=== PATIENT | female | born 1970 | race Caucasian/White ===

== ENCOUNTER 2019-06-24 10:45 | Emergency (ER) | payer MEDICARE, MEDICAID ==
[~2019-06-24] VITALS: Ht 167.6 cm; Wt 57.7 kg
[~2019-06-24 10:45] MED LIST: AZIT250T PO
[2019-06-24] MEDS ORDERED: ALBU8.5H8 IH (11:24)
[2019-06-24 12:01] VITALS: BP 128/69
== END 2019-06-24 12:05 | disposition home or self-care (01) ==
LOC: ER 10:47
DX: H92.01 Otalgia, right ear (principal); R05 Cough; F17.210 Nicotine dependence, cigarettes, uncomplicated; G89.29 Other chronic pain; Z56.0 Unemployment, unspecified; Z90.710 Acquired absence of both cervix and uterus; Z98.890 Other specified postprocedural states; Z88.0 Allergy status to penicillin; Z88.8 Allergy status to other drugs, medicaments and biological substances
CPT/HCPCS: 99283

== ENCOUNTER 2020-03-09 10:46 | Outpatient (CLI) | payer MEDICARE, MEDICAID ==
[~2020-03-09 10:46] MED LIST changes: +ALBU8.5H8 IH
== END 2020-03-09 23:59 | disposition home or self-care (01) ==
LOC: RAD 10:46
PROVIDERS: ATTEND Nurse Practitioner Family
DX: G40.209 Localization-related (focal) (partial) symptomatic epilepsy and epileptic syndromes with complex partial seizures, not intractable, without status epilepticus (principal)
CPT/HCPCS: 95816

== ENCOUNTER 2021-10-29 12:57 | Emergency (ER) | payer MEDICARE, MEDICAID ==
[~2021-10-29] VITALS: Ht 165.1 cm; Wt 56.0 kg
[~2021-10-29 12:57] MED LIST changes: +ALBU8.5H17 IH; -ALBU8.5H8 IH
[2021-10-29 13:37] VITALS: BP 123/55
[2021-10-29] MEDS ORDERED: ketorolac trometh inj. 60 MG/2 ML VIAL IM ONE (13:45)
== END 2021-10-29 15:14 | disposition home or self-care (01) ==
LOC: ER 12:58
DX: M25.511 Pain in right shoulder (principal); G89.29 Other chronic pain; F41.9 Anxiety disorder, unspecified; F32.9 Major depressive disorder, single episode, unspecified; Z86.69 Personal history of other diseases of the nervous system and sense organs; Z90.710 Acquired absence of both cervix and uterus; Z98.890 Other specified postprocedural states; Z56.0 Unemployment, unspecified; Z88.8 Allergy status to other drugs, medicaments and biological substances; Z79.2 Long term (current) use of antibiotics
CPT/HCPCS: 96372; 99283; J1885

== ENCOUNTER 2022-07-07 12:48 | Emergency (ER) | payer MEDICARE, MEDICAID ==
[~2022-07-07] VITALS: Ht 167.6 cm; Wt 52.3 kg
[2022-07-07 13:34] LABS: BASOPHILS % (AUTO) 0.4 % (0-1); EOSINOPHILS % (AUTO) 0.4 % (0-6); HEMATOCRIT 40.4 % (35.0-45.0); HEMOGLOBIN 13.9 g/dl (12.0-16.0); LYMPHOCYTES % (AUTO) 34.9 % (21-51); MEAN CORPUSCULAR HEMOGLOBIN 33.4 PG (27.0-31.0); MEAN CORPUSCULAR HGB CONC 34.4 g/dL (33.0-36.5); MEAN PLATELET VOLUME 7.3 FL (7.4-10.4); MONOCYTES # (AUTO) 0.5 X10'3 (0-0.9); MONOCYTES % (AUTO) 6.1 % (2-12); NEUTROPHILS % (AUTO) 58.2 % (42-75); PLATELET COUNT 432 X10'3 (140-440); RED BLOOD COUNT 4.16 X10'6 (4.20-5.60); RED CELL DISTRIBUTION WIDTH 14.5 % (11.5-14.5); WHITE BLOOD COUNT 8.6 X10'3 (4.5-11.0)
[2022-07-07] MEDS ORDERED: ringers solution, lacted 1,000 ML IV ONE (13:35)
[2022-07-07 13:48] LABS: ALANINE AMINOTRANSFERASE 14 U/L (12-78); ALBUMIN 3.8 G/DL (3.4-5.0); ALBUMIN/GLOBULIN RATIO 0.9 (1.1-1.5); ALKALINE PHOSPHATASE 81 IU/L (46-116); ANION GAP 11 (8-16); ASPARTATE AMINO TRANSFERASE 18 U/L (10-37); BILIRUBIN,TOTAL 0.2 MG/DL (0.1-1.0); BLOOD UREA NITROGEN 7 MG/DL (7-18); BUN/CREATININE RATIO 7.8 (6.6-38.0); CALCIUM 9.2 MG/DL (8.5-10.1); CHLORIDE 97 MMOL/L (99-107); GLUCOSE 93 MG/DL (70-104); POTASSIUM 3.4 MMOL/L (3.5-5.1); SODIUM 136 MMOL/L (135-145); TOTAL CARBON DIOXIDE 27.6 MMOL/L (24-32); eGFR 67 ML/MIN
[2022-07-07 13:54] VITALS: BP 119/105
[2022-07-07 15:30] LABS: URINE HCG NEGATIVE (NEG)
[2022-07-07 15:35] LABS: CLARITY,URINE CLEAR (Clear); COLOR,URINE YELLOW (Yellow); GLUCOSE, URINE NEGATIVE (Neg); KETONES,URINE NEGATIVE (Neg); LEUKOCYTE ESTERASE ,URINE NEGATIVE (Neg); NITRITES, URINE NEGATIVE (Neg); OCCULT BLOOD,URINE NEGATIVE (Neg); PROTEIN,URINE NEGATIVE (Neg); UROBILINOGEN,URINE 0.2 E.U/dL (0.2-1.0)
[2022-07-07 15:38] LABS: UA COLLECTION TYPE CLN CATCH MIDSTREAM
[2022-07-07] MEDS ORDERED: PROP10TA10 PO (16:47)
== END 2022-07-07 17:25 | disposition home or self-care (01) ==
LOC: ER 12:49
DX: R53.1 Weakness (principal); R19.7 Diarrhea, unspecified; R11.10 Vomiting, unspecified; G89.29 Other chronic pain; F41.9 Anxiety disorder, unspecified; Z86.69 Personal history of other diseases of the nervous system and sense organs; Z90.710 Acquired absence of both cervix and uterus; Z98.890 Other specified postprocedural states; Z56.0 Unemployment, unspecified; Z88.0 Allergy status to penicillin; Z88.8 Allergy status to other drugs, medicaments and biological substances; Z79.2 Long term (current) use of antibiotics; Z79.899 Other long term (current) drug therapy
CPT/HCPCS: 36415; 80053; 81003; 81025; 85025; 93005; 96360; 99284; J7120

== ENCOUNTER 2023-11-29 13:55 | Emergency (ER) | payer BC, MEDICAID ==
[~2023-11-29] VITALS: Ht 167.6 cm; Wt 57.8 kg
[2023-11-29 15:11] VITALS: BP 134/73; PULSE 86; RESP 16; O2SAT 98
[2023-11-29] MEDS ORDERED: NEOM10SO7 EACH EAR (15:31)
[2023-11-29 15:37] VITALS: TEMP 98
== END 2023-11-29 15:43 | disposition home or self-care (01) ==
LOC: ER 13:55
DX: H60.93 Unspecified otitis externa, bilateral (principal); F31.9 Bipolar disorder, unspecified; Z88.0 Allergy status to penicillin; Z88.8 Allergy status to other drugs, medicaments and biological substances; Z88.5 Allergy status to narcotic agent; Z79.2 Long term (current) use of antibiotics; Z90.710 Acquired absence of both cervix and uterus
CPT/HCPCS: 99283

== ENCOUNTER 2025-02-19 06:30 | Emergency (ER) | payer BC, MEDICAID ==
[~2025-02-19] VITALS: Ht 167.6 cm; Wt 52.3 kg
[~2025-02-19 06:30] MED LIST changes: +NEOM10SO7 EACH EAR
[2025-02-19 06:43] VITALS: TEMP 98.1
--- NOTE | 2025-02-19 09:29 | Physician Documentation ---
History of Present Illness ~ Chief Complaint: Vaginal Bleeding Stated Complaint: VAGINAL BLEED Time Seen by MD: 09:02 Primary Medical Doctor: EMMA FAY LIVOLSI, VAUGHN HPI Patient is seen today with complaints of vaginal bleeding that started about four days ago. Patient states it since stopped but then she had a small amount of vaginal bleeding this morning which is why she came in. Patient also complains of lower abdominal discomfort. Patient also takes high doses of [place] and Valium daily as prescribed by her primary care providers. Patient denies any urinary symptoms and has no other concern or complaint at this time. She denies any chest pain or shortness of breath or nausea, vomiting, diarrhea. Medication Reconciliation Allergies: Coded Allergies: Penicillins (Unverified Allergy, Unknown, HIVES, 07/07/22) bupropion HCl (Unverified Adverse Reaction, Severe, NAUSEA/VOMITING, 08/12/10) hydromorphone HCl (Unverified Adverse Reaction, Severe, MOOD DISTURBANCES, 08/12/10) lorazepam (Unverified Adverse Reaction, Severe, MOOD DISTURBANCES, 08/12/10) Uncoded Allergies: PENICILLIN (Allergy, Mild, 05/23/16) Scheduled Azithromycin (Zithromax), 1 DOSPAK PO UD Neomy Sulf/Polymyx B Sulf/Hc (Cortisporin Otic Solution), 4 DROP EACH EAR Q6H Scheduled PRN Albuterol Sulfate (Proair Hfa), 2 PUFFS IH Q6H PRN for SOB or wheezing Past Medical History Past Medical History: Seizures, Chronic Pain, Chronic Back Pain, Anxiety, Bipolar, Depression Past Surgical History: hysterectomy, orthopedic surgeries, other Alcohol Use: None Drug Use: none Lives In: Home Occupation: unemployed Review of Systems Constitutional: Denies: chills, fever, weakness Eyes: Denies: pain, blurred vision ENT: Denies: ear pain, nose pain, throat pain, mouth pain Respiratory: Denies: cough, shortness of breath Cardiovascular: Denies: chest pain, palpitations Gastrointestinal: Denies: abdominal pain, nausea, vomiting Genitourinary: Denies: burning, dysuria Female Genitalia: Denies: vaginal discharge, pelvic pain Neurological: Denies: headache, dizziness Musculoskeletal: Denies: pain, swelling Integumentary: Denies: rash, lesions Allergic/Immunologic: Denies: hives, itching Hematologic/Lymphatic: Denies: no symptoms reported Psychiatric: Denies: depression, anxiety Physical Exam Vital Signs: Temperature: 98.1, Source: Temporal, Heart Rate: 54, Respiratory Rate: 20, BP: 119/86, Pulse Oximetry: 98, Weight: 52.270 Oxygen Flow Rate: 0 Physical Exam General: Awake and Alert, no acute distress. HEENT: Conjunctiva pink, Sclera clear, Mucus Membranes moist. Neck: Supple without masses and tenderness. Resp: Unlabored. Lungs clear to auscultation bilaterally. Heart: Regular Rate and rhythm, normal S1 and S2 without murmur, rub or gallop. Abdomen: On exam the patient has mild tenderness to palpation in the suprapubic area. Abdomen is otherwise soft and nondistended and no rebound tenderness and no guarding. Extremities: No cyanosis,clubbing or edema. Skin: Warm and Dry. Progress Results/Orders Results/Orders Orders - KERMIT TOWNSEND PAC Ultrasound Pelvis W/Orwo Dplx (02/19/25 09:11) Urinalysis, Cult If Indicated (02/19/25 09:11) Drug Screen, Urine (02/19/25 09:11) Completed Orders - KERMIT TOWNSEND PAC Ultrasound Pelvis W/Orwo Dplx (02/19/25 09:11) Cbc/Diff (02/19/25 09:11) Lipase (02/19/25 09:11) BMP (02/19/25 09:11) Diazepam Tablet (Valium Tablet) (02/19/25 10:02) Medications Received in ER Medications (Trade) Dose Ordered Sig/[place] Route PRN Reason Start Time Stop Time Status Last Admin Dose Admin (Valium tablet) 5 mg ONCE STAT PO 02/19/25 10:02 02/19/25 10:04 DC 02/19/25 10:11 5 MG Vital Signs 02/19/25 02/19/25 02/19/25 06:43 07:56 08:01 Temp 98.1 Pulse 81 54 Resp 18 17 20 B/P (MAP) 111/67 119/86 (97) Pulse Ox 97 98 O2 Flow Rate 0 Laboratory Tests Test 02/19/25 09:28 02/19/25 10:12 White Blood Count 9.5 Red Blood Count 3.78 L Hemoglobin 12.3 Hematocrit 37.3 Mean Corpuscular Volume 98.6 H Mean Corpuscular Hemoglobin 32.5 H Mean Corpuscular Hemoglobin Concent 33.0 Red Cell Distribution Width 14.4 Platelet Count 339 Mean Platelet Volume 7.7 Neutrophils (%) (Auto) 67.6 Lymphocytes (%) (Auto) 26.7 Monocytes (%) (Auto) 4.4 Eosinophils (%) (Auto) 0.9 Basophils (%) (Auto) 0.4 Neutrophils # (Auto) 6.4 Lymphocytes # (Auto) 2.5 Monocytes # (Auto) 0.4 Eosinophils # (Auto) 0.1 Basophils # (Auto) 0.0 CBC Comment Sodium Level 140 Potassium Level 4.6 Chloride Level 108 H Carbon Dioxide Level 29.0 Anion Gap 3 L Blood Urea Nitrogen 9 Creatinine 0.74 Estimated GFR/1.73 m2 82 BUN/Creatinine Ratio 12.2 Glucose Level 93 Calcium Level 8.8 Albumin 3.3 L Lipase 45 Chemistry Comments Urine Comment Drug Screen Comment EKG/XRAY/CT/US/VASC/MRI Ultrasound : Impression ULTRASOUND Patient: JENNY APARICIO Medical Record: [id number] [facility] : 1970, Age: 54 Sex: Female Location: ER Patient Status: [facility] ER Service Date/Time: 02/19/25910 Ordering Physician: KERMIT TOWNSEND PAC Exam: ULTRASOUND PELVIS W/ORWO DPLX INDICATION: lower abd pain/pelvic pain, vaginal bleeding, Hx partial histerectomy TECHNIQUE: Multiple real-time grayscale transabdominal sonographic images along with color and duplex Doppler of the uterus and ovaries were obtained. COMPARISON: None FINDINGS: Hysterectomy. Right ovary surgically absent. Left ovary measures 1.5 x 1.0 x 0.9 cm with normal Doppler color flow IMPRESSION: Post hysterectomy. Right ovary surgically absent. Left ovary is grossly within normal limits. Electronically Signed by:NGHIA RAY MD Date & Time: 02/19/25 1003 Dictated by: NGHIA RAY MD Dictation date and time: 02/19/25 1003 Primary Care Provider: NO PRIMARY CARE PROVIDER cc: KERMIT TOWNSEND ~ Medical Decision Making Findings Patient is seen today with complaints of vaginal bleeding that started about four days ago. Patient states it since stopped but then she had a small amount of vaginal bleeding this morning which is why she came in. Patient also complains of lower abdominal discomfort. Patient also takes high doses of [place] and Valium daily as prescribed by her primary care providers. Patient denies any urinary symptoms and has no other concern or complaint at this time. She denies any chest pain or shortness of breath or nausea, vomiting, diarrhea. Patient did have labs and urinalysis that were unremarkable largely. No sign of UTI. Patient was given a dose of Valium 5 mg by mouth in the ED today for her anxiety as she usually takes this medication 4 times a day and missed her morning dose. Ultrasound of abdomen was also unremarkable. Patient and I did utilize shared decision-making today. Patient will follow up with dye lab technician specialist as soon as possible for further eval and treatment. Patient will return to ED with any worsening, concerning or changing symptoms. Departure Disposition: 01 HOME / SELF CARE / HOMELESS Impression: Primary Impression: Vaginal bleeding Condition: Stable Discharge Instructions: Dysfunctional Uterine Bleeding Additional Instructions: Patient did have labs and urinalysis that were unremarkable largely. No sign of UTI. Patient was given a dose of Valium 5 mg by mouth in the ED today for her anxiety as she usually takes this medication 4 times a day and missed her morning dose. Ultrasound of abdomen was also unremarkable. Patient and I did utilize shared decision-making today. Patient will follow up with dye lab technician specialist as soon as possible for further eval and treatment. Patient will return to ED with any worsening, concerning or changing symptoms. Referrals: NO PRIMARY CARE PROVIDER (PCP) Signature Scribe Signature: No scribe Attestation: No scribe KERMIT TOWNSEND February 19, 2025 09:29
[2025-02-19 09:43] LABS: BASOPHILS % (AUTO) 0.4 % (0-1); EOSINOPHILS # (AUTO) 0.1 X10'3 (0-0.9); EOSINOPHILS % (AUTO) 0.9 % (0-6); HEMATOCRIT 37.3 % (35.0-45.0); HEMOGLOBIN 12.3 g/dl (12.0-16.0); LYMPHOCYTES # (AUTO) 2.5 X10'3 (1.1-4.8); LYMPHOCYTES % (AUTO) 26.7 % (21-51); MEAN CORPUSCULAR HEMOGLOBIN 32.5 PG (27.0-31.0); MEAN CORPUSCULAR VOLUME 98.6 FL (78-98); MEAN PLATELET VOLUME 7.7 FL (7.4-10.4); MONOCYTES # (AUTO) 0.4 X10'3 (0-0.9); MONOCYTES % (AUTO) 4.4 % (2-12); NEUTROPHILS # (AUTO) 6.4 X10'3 (1.8-7.7); NEUTROPHILS % (AUTO) 67.6 % (42-75); PLATELET COUNT 339 X10'3 (140-440); RED BLOOD COUNT 3.78 X10'6 (4.20-5.60); RED CELL DISTRIBUTION WIDTH 14.4 % (11.5-14.5); WHITE BLOOD COUNT 9.5 X10'3 (4.5-11.0)
[2025-02-19 09:48] LABS: ALBUMIN 3.3 G/DL (3.4-5.0); ANION GAP 3 (8-16); BLOOD UREA NITROGEN 9 MG/DL (7-18); BUN/CREATININE RATIO 12.2 (10.0-20.0); CALCIUM 8.8 MG/DL (8.5-10.1); CHLORIDE 108 MMOL/L (99-107); CREATININE 0.74 MG/DL (0.40-0.90); GLUCOSE 93 MG/DL (70-104); LIPASE 45 U/L (16-77); POTASSIUM 4.6 MMOL/L (3.5-5.1); SODIUM 140 MMOL/L (135-145); eCRCL 73 ML/MIN; eGFR 82 ML/MIN
--- NOTE | 2025-02-19 10:06 | RADIOLOGY REPORT ---
INDICATION: lower abd pain/pelvic pain, vaginal bleeding, Hx partial histerectomy TECHNIQUE: Multiple real-time grayscale transabdominal sonographic images along with color and duplex Doppler of the uterus and ovaries were obtained. COMPARISON: None FINDINGS: Hysterectomy. Right ovary surgically absent. Left ovary measures 1.5 x 1.0 x 0.9 cm with normal Doppler color flow IMPRESSION: Post hysterectomy. Right ovary surgically absent. Left ovary is grossly within normal limits.
[2025-02-19] MEDS: diazepam 5mg tablet PO STA (10:11)
[2025-02-19 10:24] LABS: BILIRUBIN,URINE NEGATIVE (Neg); CLARITY,URINE CLEAR (Clear); COLOR,URINE STRAW (Yellow); GLUCOSE, URINE NEGATIVE (Neg); KETONES,URINE NEGATIVE (Neg); LEUKOCYTE ESTERASE ,URINE NEGATIVE (Neg); OCCULT BLOOD,URINE NEGATIVE (Neg); PROTEIN,URINE NEGATIVE (Neg); UROBILINOGEN,URINE 0.2 E.U/dL (0.2-1.0)
[2025-02-19 10:29] LABS: UA COLLECTION TYPE CLN CATCH MIDSTREAM
[2025-02-19 10:30] LABS: NITRITES, URINE NEGATIVE (Neg)
[2025-02-19 10:38] LABS: URINE AMPHETAMINE SCREEN NEGATIVE (Neg); URINE BARBITUATE SCREEN NEGATIVE (Neg); URINE BENZODIAZEPINES SCREEN POSITIVE (Neg); URINE CANNABINOID SCREEN POSITIVE (Neg); URINE COCAINE SCREEN NEGATIVE (Neg); URINE METHADONE SCREEN NEGATIVE (Neg); URINE OPIATE SCREEN POSITIVE (Neg); URINE PHENCYCLIDINE SCREEN NEGATIVE (Neg)
[2025-02-19 11:01] VITALS: BP 117/85; PULSE 55; RESP 15; O2SAT 98
== END 2025-02-19 11:03 | disposition home or self-care (01) ==
LOC: ER 06:30
DX: N93.9 Abnormal uterine and vaginal bleeding, unspecified (principal); F31.9 Bipolar disorder, unspecified; F41.9 Anxiety disorder, unspecified; Z88.0 Allergy status to penicillin; Z88.8 Allergy status to other drugs, medicaments and biological substances; Z90.710 Acquired absence of both cervix and uterus
CPT/HCPCS: 36415; 76857; 80048; 80305; 81003; 83690; 85025; 93976; 99284